=== PATIENT | male | born 1990 | race Hispanic/Latino ===

== ENCOUNTER 2020-12-10 02:49 | Emergency (ER) | payer BC ==
[~2020-12-10] VITALS: Ht 175.3 cm; Wt 122.5 kg
[2020-12-10] MEDS ORDERED: TETANUS/DIPHTHERIA TOX ADULT 0.5 ML SYR IM ONE (03:15)
[2020-12-10] MEDS ORDERED: LIDOCAINE 1% 5ML-MPF INJ ONE (03:15)
[2020-12-10 03:52] VITALS: BP 169/89
== END 2020-12-10 03:52 | disposition home or self-care (01) ==
LOC: FSED 03:40
DX: S01.511A Laceration without foreign body of lip, initial encounter (principal); Y04.0XXA Assault by unarmed brawl or fight, initial encounter; Y92.008 Other place in unspecified non-institutional (private) residence as the place of occurrence of the external cause
CPT/HCPCS: 99282